=== PATIENT | female | born 1970 | race Caucasian/White ===

== ENCOUNTER 2020-03-29 10:00 | Outpatient (CLI) | payer MEDICARE, MEDICAID ==
[2020-03-29] MEDS ORDERED: OXYC10TA6 PO (10:34)
[2020-03-29] MEDS ORDERED: [UNRECOGNIZED DRUG - OTHER] PO (10:34)
== END 2020-03-29 23:59 | disposition home or self-care (01) ==
LOC: STAR 10:00
PROVIDERS: ATTEND Orthopaedic Surgery
DX: Z01.818 Encounter for other preprocedural examination (principal); M79.672 Pain in left foot; R00.1 Bradycardia, unspecified
CPT/HCPCS: 93005

== ENCOUNTER 2020-04-02 05:38 | Day surgery (SDC) | payer MEDICARE, MEDICAID ==
[~2020-04-02] VITALS: Ht 175.3 cm; Wt 84.4 kg
[~2020-04-02 05:38] MED LIST: OXYC10TA6 PO; [UNRECOGNIZED DRUG - OTHER] PO
[2020-04-02] MEDS ORDERED: LIDOCAINE 1%, 20ML ONE (06:03)
[2020-04-02] MEDS ORDERED: BUPIVACAINE/PF 0.5% ONE (06:03)
[2020-04-02] MEDS ORDERED: CHLORHEXIDINE 15 ML UDC MM STA (06:06)
[2020-04-02] MEDS ORDERED: LACTATED RINGERS 1,000 ML IV SCH (06:07)
[2020-04-02] MEDS ORDERED: FENTANYL PF 250 MCG/5ML ONE (06:21)
[2020-04-02] MEDS ORDERED: MIDAZOLAM 1 MG/ML, 2ML ONE ×2 (06:21→06:22)
[2020-04-02] MEDS ORDERED: PROMETHAZINE 25 MG/ML, 1ML IVPush PRN (07:00)
[2020-04-02] MEDS ORDERED: hydrALAzine 20 MG/ML, 1ML IV PRN (07:00)
[2020-04-02] MEDS ORDERED: OXYcodone 5 MG/5 ML ORAL.SOL UDC PO PRN (07:00)
[2020-04-02] MEDS ORDERED: HALOPERIDOL 5 MG/ML IV PRN (07:00)
[2020-04-02] MEDS ORDERED: LABETALOL 5MG/ML, 20ML IV PRN (07:00)
[2020-04-02] MEDS ORDERED: DIPHENHYDRAMINE 50 MG/ML, 1ML IVPush PRN (07:00)
[2020-04-02] MEDS ORDERED: HYDROmorphone 1 MG/ML, 1ML INJ IVPush PRN (07:00)
[2020-04-02] MEDS ORDERED: MEPERIDINE/PF 25MG/0.5ML IVPush PRN (07:00)
[2020-04-02] MEDS ORDERED: ONDANSETRON 2MG/ML, 2ML ONE (08:02)
[2020-04-02] MEDS ORDERED: PROPOFOL 10 MG/ML, 20ML ONE (08:02)
[2020-04-02] MEDS ORDERED: DEXAMETHASONE 4 MG/ML, 1ML ONE (08:02)
[2020-04-02] MEDS ORDERED: CEFAZOLIN 1,000 MG ONE (08:02)
[2020-04-02] MEDS ORDERED: FENTANYL PF 100 MCG/2ML ONE (08:10)
[2020-04-02] MEDS ORDERED: OXYcodone 5 MG/5 ML ORAL.SOL UDC ONE (08:11)
[2020-04-02] MEDS: FENTANYL PF 100 MCG/2ML IV PRN ×2 (08:23→08:28)
== END 2020-04-02 11:45 | disposition home or self-care (01) ==
LOC: OUT 05:38
PROVIDERS: ATTEND Orthopaedic Surgery
DX: M20.42 Other hammer toe(s) (acquired), left foot (principal); Z11.59 Encounter for screening for other viral diseases; M24.575 Contracture, left foot; E03.9 Hypothyroidism, unspecified; I69.354 Hemiplegia and hemiparesis following cerebral infarction affecting left non-dominant side; Z88.8 Allergy status to other drugs, medicaments and biological substances; Z91.048 Other nonmedicinal substance allergy status; Z79.899 Other long term (current) drug therapy; Z72.89 Other problems related to lifestyle; Z82.49 Family history of ischemic heart disease and other diseases of the circulatory system; Z83.3 Family history of diabetes mellitus
CPT/HCPCS: 28285; 28308; 28313; 36415; 82330; 82803; 82947; 84132; 84295; 85014; 87635; C1713; J0690; J1100; J2250; J2405; J2704; J3010; J7120